=== PATIENT | female | born 2005 | race African-American/Black ===

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

== ENCOUNTER 2024-08-30 13:10 | Emergency (ER) | payer OTHER ==
[~2024-08-30] VITALS: Ht 160 cm; Wt 52.2 kg
[~2024-08-30 13:10] MED LIST: DIPH25CA83 PO; [UNRECOGNIZED DRUG - OTHER]; pnv
[2024-08-30 13:46] VITALS: BP 124/79; PULSE 61; RESP 16; TEMP 98.4; O2SAT 100
[2024-08-30] MEDS ORDERED: VALA10002 MT (14:38)
== END 2024-08-30 14:57 | disposition home or self-care (01) ==
LOC: ER 13:10
DX: B00.1 Herpesviral vesicular dermatitis (principal)
CPT/HCPCS: 99283